=== PATIENT | female | born 1955 | race Caucasian/White ===

== ENCOUNTER 2017-01-24 12:03 | Outpatient (CLI) | payer MEDICARE, BC | END 2017-01-24 12:04 | disposition home or self-care (01) | LOC: CP 12:03 | PROVIDERS: ATTEND Internal Medicine Critical Care Medicine | DX: R06.09 Other forms of dyspnea (principal) | CPT/HCPCS: 94010; 94727; 94729 ==

== ENCOUNTER 2017-09-29 07:36 | Outpatient (CLI) | payer MEDICARE, BC ==
--- NOTE | 2017-09-29 08:46 | RAD ---
3 VIEWS LUMBAR SPINE: Date: 09/29/17 HISTORY: Lumbar radiculopathy. Pain. COMPARISON: 01/25/16. FINDINGS: There are five lumbar-type vertebral bodies. In the neutral position, there is 2.9 mm of retrolisthesis of L2 upon L3. Upon flexion, there is 2.9 mm of retrolisthesis of L2 upon L3. Upon extension, there is 3.4 mm of retrolisthesis of L2 upon L3. In the neutral position, there is 3.7 mm of retrolisthesis of L3 upon L4. Upon flexion, there is 3.6 mm of retrolisthesis of L3 upon L4. Upon extension, there is 4.6 mm of retrolisthesis of L3 upon L4. Osteophyte formation at the L2-L3 level with moderate loss of disc space height noted. There is vacuu m disc phenomenon at L5-S1. Nonspecific irregularity upon the anterior and superior aspect of the L4 vertebral body, not appreciated on examination from December 2015. IMPRESSION: 1. Spondylolisthesis as above. 2. Irregularity of the anterior superior end plate of L4, incompletely evaluated. POS: [facility]
--- NOTE | 2017-09-29 09:31 | MRI ---
MRI LUMBAR SPINE WITHUOT CONTRAST: COMPARISON: 01/18/16. HISTORY: Lumbar radiculopathy. TECHNIQUE: MRI lumbar spine is performed without intravenous Gadolinium administration. Multisequential, multip lanar imaging is performed. FINDINGS: Heterogeneous marrow signal intensity involving the L2-L3 disk space, L4-L5 disk space due to a combi nation of type I and type II Modic change. Intrinsic hemangioma involving the left aspect of the L2 vertebral body is unchanged. 2.3 mm of retrolisthesis of L2 upon L3, 2.5 mm of retrolisthesis of L4 upon L5. No evidence of STIR hyperintensity to suggest vertebral body edema from fracture. No MRI evidence of ligamentous injury. Symmetric signal intensity of the spas muscles. Appropriate signal intensity of the visualized solid organs. Conus medullaris terminates at the superior aspect of L1. T12-L1: Adequate disk hydration. No significant central canal stenosis or foraminal narrowing. L1-L2: Adequate disk hydration. NO significant central canal stenosis or foraminal narrowing. L2-L3: Disk desiccation with moderate to severe loss of disk space height. Generalized disk bulge r esults in mild central canal stenosis. Mild to moderate right and mild left neural foraminal narrowi ng. A small amount of fluid in both facet joints. L3-L4: Desiccation with moderate loss of disk space height. Generalized disk bulge, ligamentum flav um thickening, and facet hypertrophy result in moderate to severe central canal stenosis. Moderate t o severe bilateral neural foraminal narrowing. There is fluid in both facet joints. There is a smal l right subarticular superior disk extrusion. There is some mass effect upon the traversing right L4 nerve root. This superior disk extrusion is best appreciated on the sagittal images and measures 7 mm in the craniocaudal dimension. L4-L5: Desiccation with moderate loss of disk space height. Generalized disk bulge, ligamentum flav um thickening, and facet hypertrophy result in mild to moderate central canal stenosis. Moderate aristeo ateral neural foraminal narrowing. L5-S1: Desiccation with moderate loss of disk space height. No significant stenosis of the thecal s ac. There is bilateral facet hypertrophy. Moderate to severe bilateral foraminal narrowing. IMPRESSION: 1. Extensive degenerative change of the lumbar spine as above. 2. Stable spondylolisthesis as above. 3. Interval development of a superior disk extrusion at the L3-L4 level. This extruded disk materia l is in the right subarticular zone and causes some mass effect upon the traversing right L4 nerve ro ot. POS: [facility]
== END 2017-09-29 07:37 | disposition home or self-care (01) ==
LOC: TBSIIMAG 07:36
PROVIDERS: ATTEND Specialist
DX: M47.26 Other spondylosis with radiculopathy, lumbar region (principal); M47.27 Other spondylosis with radiculopathy, lumbosacral region; M51.16 Intervertebral disc disorders with radiculopathy, lumbar region; M99.83 Other biomechanical lesions of lumbar region; M48.061 Spinal stenosis, lumbar region without neurogenic claudication; M43.16 Spondylolisthesis, lumbar region
CPT/HCPCS: 72100; 72148

== ENCOUNTER 2017-12-14 07:49 | Outpatient (CLI) | payer MEDICARE, BC ==
--- NOTE | 2017-12-14 10:31 | MRI ---
LUMBAR SPINE MRI WITHOUT CONTRAST: Comparison: 09-29-17 History: Spinal stenosis of the lumbar region, unspecified. Neurogenic claudication. Comparison: 09-29-17 Technique: Lumbar spine MRI is performed without intravenous gadolinium administration. Multisequenti al, multiplanar imaging is performed. FINDINGS: There is decreased T1 marrow signal intensity of the lumbar vertebrae. There are patchy areas of T1 a nd T2 hyperintensity throughout the lumbar spine suggesting areas of type II Modic change as well as a hemangioma involving the left aspect of the L2 vertebral body. There is stable spondylolisthesis wh en compared to the previous examination. No significant STIR hyperintensity to suggest vertebral body edema or ligamentous injury. Symmetric signal intensity of the psoas muscles. Visualized solid organs are unremarkable. Conus medullaris terminates at the upper aspect of L1. T11-12, T12-L1: No significant central canal stenosis or foraminal narrowing. L1-2: No significant central canal stenosis or foraminal narrowing. L2-3: Desiccation with severe loss of disc space height. Generalized disc bulge does not cause any si gnificant central canal stenosis. Mild bilateral neural foraminal narrowing. L3-4: Desiccation with moderate loss of disc space height. Generalized disc bulge, ligamentum flavum thickening and hypertrophy results in moderate central canal stenosis. Severe bilateral neural forami nal narrowing. L4-5: Desiccation with moderate loss of disc space height. Generalized disc bulge, ligamentum flavum thickening, slight hypertrophy results in moderate to severe central canal stenosis. Moderate to wanda re bilateral foraminal narrowing. L5-S1: Desiccation with mild to moderate loss of disc space height. No significant central canal sten osis. Moderate to severe bilateral neural foraminal narrowing. IMPRESSION: 1. Re-demonstration of extensive degenerative changes of the lumbar spine with associated spondylolit hsis. The previously noted superior disc extrusion into the right subarticular zone at L3-4 is less e vident. However, there does appear to be slight progression in terms of central canal stenosis at L3- 4. Additionally, there appears to be progression of central canal stenosis at L4-5. 2. T1 marrow signal hypointensity of the lumbar vertebrae which has developed since the previous exam ination. Correlate for anemia or marrow infiltrative process. Code T POS: [facility]
--- NOTE | 2017-12-14 11:41 | MRI ---
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 TECHNIQUE: Multiple sequences obtained in axial, sagittal, and coronal planes; pre and post IV injection of gado linium-based contrast agent: 8 mL MultiHance. In addition to standard whole brain sequences, thin sli ce coronal and sagittal images were obtained through the sella turcica, including dynamic sequences. FINDINGS: The ventricles are normal in size and configuration. There is no major intraaxial signal abnormality , restricted diffusion, abnormal intraaxial enhancement, mass, midline shift or any other mass effect , recent intraaxial hemorrhage, or extraaxial fluid collection. There is a smoothly, well circumscribed, approximately 10 x 10 x 11 mm, mass in the sella turcica, ce ntered to the left side. It is very hyperintense on T2 WI (higher in signal intensity than CSF), hypo intense on T1 WI (intermediate between that of CSF and brain parenchyma), moderately hyperintense on FLAIR, and does not enhance. It has not significantly changed compared to 03/14/16 and 10/24/16 MRIs. IMPRESSION: 1. 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 2. No interval change since 03/14/16. 3. The brain is normal. jn[] POS: [facility] [place]
[2017-12-14] MEDS ORDERED: Gadobenate Dimeglumine 529 MG/1 ML (20ML VIAL) ONE (14:07)
== END 2017-12-14 07:50 | disposition home or self-care (01) ==
LOC: MRI 07:49
PROVIDERS: ATTEND Surgery
DX: M48.061 Spinal stenosis, lumbar region without neurogenic claudication (principal); E23.6 Other disorders of pituitary gland; M47.896 Other spondylosis, lumbar region; M51.26 Other intervertebral disc displacement, lumbar region
CPT/HCPCS: 70553; 72148; A9579

== ENCOUNTER 2018-06-07 04:51 | Outpatient (CLI) | payer MEDICARE, BC ==
[2018-06-07 17:08] LABS: Hemoglobin 12.5 g/dL (12.0-16.0); Mean Corpuscular HGB CONC 32.3 g/dL (32.0-36.0); Mean Corpuscular Hemoglobin 31.3 pg (27.0-31.0); Mean Corpuscular Volume 96.8 fL (78.0-98.0); Platelet Count 307 thou/uL (130-400); RBC Distribution Width 11.8 % (11.5-14.5); Red Blood Cell (RBC) Count 3.98 mill/uL (4.20-5.40); White Blood Cell (WBC) Count 5.3 thou/uL (4.8-10.8)
[2018-06-07 17:14] LABS: INR-International Normal Ratio 0.9; PTT 27.7 SEC (22.9-36.1); Prothrombin Time 12.5 SEC (12.0-14.7)
[2018-06-07 17:21] LABS: Anion Gap 13 mmol/L (10-20); BUN (Urea Nitrogen) 28 mg/dL (9.8-20.1); Calc. Creatinine Clearance 0 mL/min (70-130); Calcium 8.9 mg/dL (7.8-10.44); Carbon Dioxide 22 mmol/L (23-31); Chloride 104 mmol/L (98-107); Estimated GFR-MDRD 67; Glucose 86 mg/dL (80-115); Potassium 3.7 mmol/L (3.5-5.1); Sodium 135 mmol/L (136-145)
== END 2018-06-07 04:52 | disposition home or self-care (01) ==
LOC: LABBT 04:51
PROVIDERS: ATTEND Surgery
DX: Z01.818 Encounter for other preprocedural examination (principal); M54.16 Radiculopathy, lumbar region; M48.061 Spinal stenosis, lumbar region without neurogenic claudication
CPT/HCPCS: 80048; 85027; 85610; 85730; 93005; 93010

== ENCOUNTER 2018-06-14 07:12 | Day surgery (SDC) | payer MEDICARE, BC ==
[2018-06-07 17:13] VITALS: BMI 36.3
[2018-06-14] MEDS ORDERED: Clindamycin/D5W 900 mg/50 ml Premix Bag ONE (07:30)
[2018-06-14] MEDS ORDERED: Thrombin 5000 UNITS/5 ML VIAL ONE (07:37)
[2018-06-14] MEDS ORDERED: Bacitracin Zinc Ointment 30 gm TUBE ONE (07:37)
[2018-06-14] MEDS ORDERED: Sodium Chloride 0.9% 10 ML ONE (07:37)
[2018-06-14] MEDS ORDERED: HYDROmorphone 2 MG/ML VIAL ONE ×2 (08:46→12:17)
[2018-06-14] MEDS ORDERED: Ketamine 50 MG/ML (10ML VIAL) ONE (08:50)
[2018-06-14] MEDS ORDERED: PHENYLEPHRINE-NS 100 MCG/ML 10 ML SYRINGE ONE ×2 (10:20→13:27)
--- NOTE | 2018-06-14 11:24 | OP ---
DATE OF PROCEDURE: 06/14/2018 OPERATING ROOM: OR 11. WOUND CLASSIFICATION: Type 1 wound. NUCLEAR MEDICINE PET CT TECHNOLOGIST: Steve Dunlap PA-C. PREPROCEDURE DIAGNOSES: Lumbar stenosis with low back and leg pain and lumbar disk extrusion. POSTPROCEDURE DIAGNOSES: Lumbar stenosis with low back and leg pain and lumbar disk extrusion. PROCEDURES PERFORMED: 1. L3-L4 and L4-L5 laminectomies, partial facetectomies, and foraminotomies. 2. Right L3-L4 diskectomy. 3. Use of operative microscope for microdissection. DESCRIPTION OF PROCEDURE: After informed consent was obtained from the patient, the patient was brought to the OR. Proper patient, pause, and identification were carried out. She was placed under excellent general endotracheal anesthesia and positioned prone on the OR table. All appropriate points were padded. We identified the L3, L4, and L5 dorsal spines and a linear leticia was made over this area. The region was sterilely cleansed, prepared, and draped. Proper patient, pause, and identification were carried out. The wound was then opened with a combination of sharp, monopolar, and blunt dissection, and the L3, L4, L5 segments were exposed. Localization film confirmed our area of interest. We then performed L3, L4, and L5 laminectomies, partial facetectomies, and foraminotomies. With the use of operative microscope, working lateral to the traversing right L4 nerve root, we identified disk material and this was removed. Copious irrigation occurred throughout as did maximizing hemostasis. There was no spinal fluid leak. The wound was closed in anatomic layers following sprinkling of vancomycin powder. The patient then emerged from anesthesia. Job ID: [id number]
[2018-06-14] MEDS ORDERED: Fleet Enema 133 ML BOT PR PRN (12:06)
[2018-06-14] MEDS ORDERED: Mag-Al 1200 mg/1200 mg/30 ML UDCUP PO PRN (12:06)
[2018-06-14] MEDS ORDERED: Bisacodyl 10 MG SUPP PR PRN (12:06)
[2018-06-14] MEDS ORDERED: Acetaminophen/Codeine 30-300mg Tablet PO PRN (12:06)
[2018-06-14] MEDS ORDERED: Promethazine HCl 25 MG/ML VIAL IM PRN ×2 (12:06→12:14)
[2018-06-14] MEDS ORDERED: Acetaminophen 325 MG TAB PO PRN (12:06)
[2018-06-14] MEDS ORDERED: Milk Of Magnesia 30 ML UDCUP PO PRN (12:06)
[2018-06-14] MEDS ORDERED: ALPRAZolam 1 MG TAB PO PRN (12:09)
[2018-06-14] MEDS ORDERED: HYDROmorphone 2 MG/ML VIAL SLOW IVP PRN (12:14)
[2018-06-14] MEDS ORDERED: Promethazine HCl 25 MG/ML VIAL SLOW IVP PRN (12:14)
[2018-06-14] MEDS ORDERED: Ondansetron HCl/PF 4 MG/2 ML Vial IVP PRN (12:14)
[2018-06-14] MEDS ORDERED: Rocuronium Bromide 10 MG/ML (10ML VIAL) ONE (13:27)
[2018-06-14] MEDS ORDERED: Glycopyrrolate 0.2 MG/ML 5 ML SYRINGE ONE (13:27)
[2018-06-14] MEDS ORDERED: Dexamethasone 20 MG/5 ML VIAL ONE (13:27)
[2018-06-14] MEDS ORDERED: Lidocaine 1% PF 5 ML VIAL ONE (13:27)
[2018-06-14] MEDS ORDERED: Succinylcholine Chloride 20 MG/ML 10 ml SYRINGE FS ONE (13:27)
[2018-06-14] MEDS ORDERED: PROPOFOL 200 MG/20 ML VIAL ONE (13:27)
[2018-06-14] MEDS ORDERED: Ondansetron PF 4 MG/2 ML Vial ONE (13:27)
[2018-06-14] MEDS ORDERED: Ketorolac Tromethamine 30 MG/ML VIAL ONE (13:27)
[2018-06-14] MEDS ORDERED: Vancomycin HCl 1 GM in Sodium Chloride 0.9% 250 ML 250 ML IVPB SCH (14:00)
[2018-06-14] MEDS: Cyclobenzaprine 10 MG TAB PO PRN (14:06)
[2018-06-14] MEDS: HYDROcodone/Acetaminophen 7.5/325 mg Tablet PO PRN ×3 (14:06→21:09)
[2018-06-14] MEDS ORDERED: Morphine 4 MG/ML VIAL SLOW IVP PRN (14:31)
[2018-06-14] MEDS ORDERED: Fiorinal 325/50/40 mg Tablet PO PRN (16:21)
[2018-06-14] MEDS: Sodium Chloride 0.9% 1,000 ML IV SCH (18:55)
[2018-06-14] MEDS ORDERED: Vancomycin HCl 1 GM in Premix Bag 1 BAG IVPB SCH (20:00)
[2018-06-14] MEDS ORDERED: tiZANidine HCl 4 MG TAB PO SCH (21:00)
[2018-06-14] MEDS: clonazePAM 1 MG TAB PO SCH (21:01)
[2018-06-14] MEDS: Zonisamide 100 MG CAP PO SCH (21:02)
[2018-06-15] MEDS: Cyclobenzaprine 10 MG TAB PO PRN (00:05)
[2018-06-15] MEDS: HYDROcodone/Acetaminophen 7.5/325 mg Tablet PO PRN ×3 (01:28→11:45)
[2018-06-15] MEDS: Sodium Chloride 0.9% 1,000 ML IV SCH (06:17)
[2018-06-15] MEDS: clonazePAM 1 MG TAB PO SCH (07:57)
[2018-06-15] MEDS: Zonisamide 100 MG CAP PO SCH (07:57)
[2018-06-15] MEDS ORDERED: LEVOMILNACIPRAN HCL PO SCH (09:00)
--- NOTE | 2018-06-15 11:35 | PRG ---
DATE OF SERVICE: Ms. Linder is postoperative day 1 from lumbar decompression. She is doing well with improvement in her low back and leg pain. She does have some persistent she states of right anterior thigh pain. This also may be meralgia paresthetica simply due to her body habitus. Nevertheless, she has a good strength and is mobilizing. She is pleased with how she is doing. We will plan for likely dismissal today. Job ID: [id number]
[2018-06-15 12:01] VITALS: BP 124/83; TEMP 98.4
== END 2018-06-15 13:49 | disposition home or self-care (01) ==
LOC: SDC 07:12 → SJJU 13:44 → SDC 06-15 13:49
PROVIDERS: ATTEND Surgery
PROC: 01NB0ZZ Release Lumbar Nerve, Open Approach (ICD-10-PCS; principal; 2018-06-14)
DX: M48.061 Spinal stenosis, lumbar region without neurogenic claudication (principal); M51.26 Other intervertebral disc displacement, lumbar region; Z88.1 Allergy status to other antibiotic agents; Z88.5 Allergy status to narcotic agent; Z88.0 Allergy status to penicillin; Z88.8 Allergy status to other drugs, medicaments and biological substances; Z79.891 Long term (current) use of opiate analgesic; Z79.899 Other long term (current) drug therapy
CPT/HCPCS: 76000; J0131; J1100; J1170; J1885; J2001; J2405; J2704; J3370; J3490; J7050

== ENCOUNTER 2018-12-13 16:39 | Outpatient (CLI) | payer MEDICARE, BC ==
--- NOTE | 2018-12-18 06:45 | MMO ---
Bilateral MAMMO Bilat Screen [facility]. CLINICAL HISTORY: Patient is 63 years old and is seen for screening. The patient has the following family history of breast cancer: 3 great aunts, maternal. The patient has no personal history of cancer. VIEWS: The views performed were: bilateral craniocaudal with tomosynthesis and bilateral mediolateral oblique with tomosynthesis. FILMS COMPARED: The present examination has been compared to prior imaging studies performed at [facility] on 02/28/2013, 08/28/2014, 09/10/2015 and 10/17/2016. MAMMOGRAM FINDINGS: There are scattered fibroglandular densities. There are benign appearing calcifications seen in both breasts. There are no suspicious masses, suspicious calcifications, or new areas of architectural distortion. IMPRESSION: THERE IS NO MAMMOGRAPHIC EVIDENCE OF MALIGNANCY. A ROUTINE FOLLOW-UP MAMMOGRAM IN 1 YEAR IS RECOMMENDED. THE RESULTS OF THIS EXAM WERE SENT TO THE PATIENT. ACR BI-RADS Category 2 - Benign finding MAMMOGRAPHY NOTE: 1. A negative mammogram report should not delay a biopsy if a dominant of clinically suspicious mass is present. 2. Approximately 10% to 15% of breast cancers are not detected by mammography. 3. Adenosis and dense breasts may obscure an underlying neoplasm. Reported by: BOB BARBA MD Electonically Signed: [id number]
== END 2018-12-13 16:40 | disposition home or self-care (01) ==
LOC: BICMAMMO 16:39
PROVIDERS: ATTEND Obstetrics & Gynecology
DX: Z12.31 Encounter for screening mammogram for malignant neoplasm of breast (principal); Z80.3 Family history of malignant neoplasm of breast
CPT/HCPCS: 77063; 77067